=== PATIENT | female | born 1955 | race Caucasian/White ===

== ENCOUNTER → 2016-06-20 | Outpatient (CLI) | payer BC | END | disposition home or self-care (01) | LOC: RAD.S 12:18 | DX: Z12.31 Encounter for screening mammogram for malignant neoplasm of breast (principal) ==

== ENCOUNTER → 2016-11-15 | Outpatient (CLI) | payer BC | END | disposition home or self-care (01) | DX: H92.01 Otalgia, right ear (principal); H93.8X1 Other specified disorders of right ear; E04.2 Nontoxic multinodular goiter; Z98.890 Other specified postprocedural states ==